=== PATIENT | female | born 1970 | race Caucasian/White ===

== ENCOUNTER 2021-05-02 06:08 | Day surgery (SDC) | payer SELFPAY ==
[~2021-05-02 06:08] MED LIST: Lactated Ringers 1,000 ML IV SCH; cefOXitin 2 GM in Premix Bag 1 BAG IV ONE
[2021-05-02] MEDS ORDERED: Dexamethasone 4 MG/ML 5 ML MDV ONE (07:05)
[2021-05-02] MEDS ORDERED: Rocuronium Bromide 50 MG/5 ML Syringe ONE ×2 (07:05→08:55)
[2021-05-02] MEDS ORDERED: Ondansetron 4 MG/2 ML SDV ONE (07:05)
[2021-05-02] MEDS ORDERED: Sugammadex Sodium 200 MG/2 ML VIAL ONE (07:05)
[2021-05-02] MEDS ORDERED: fentaNYL 100 MCG/2 ML SDV ONE (07:05)
[2021-05-02] MEDS ORDERED: Lidocaine 2% 5 ML SDV ONE (07:05)
[2021-05-02] MEDS ORDERED: Midazolam 1 MG/ML 2 ML SDV ONE (07:05)
[2021-05-02] MEDS ORDERED: Propofol 200 MG/20 ML SDV ONE (07:05)
[2021-05-02] MEDS ORDERED: fentaNYL 100 MCG/2 ML SDV IVPUSH PRN (07:21)
[2021-05-02] MEDS ORDERED: Albuterol 0.083% 2.5 MG/3 ML Neb Soln NEB PRN (07:21)
[2021-05-02] MEDS ORDERED: Metoclopramide 10 MG/2 ML SDV IVPUSH PRN (07:21)
[2021-05-02] MEDS ORDERED: Ondansetron 4 MG/2 ML SDV IVPUSH PRN (07:21)
[2021-05-02] MEDS ORDERED: HYDROmorphone 1 MG/ML Syringe IVPUSH PRN (07:21)
[2021-05-02] MEDS ORDERED: Morphine 10 MG/ML Syringe IVPUSH PRN ×2 (07:21→10:30)
[2021-05-02] MEDS ORDERED: Naloxone 0.4 MG/ML Syringe IVPUSH PRN (07:21)
--- NOTE | 2021-05-02 07:21 | PCM.PREANE ---
Preanesthetic Assessment - Procedure Proposed Procedure: Lap Rosa - Anesthesia/Transfusion/Family Hx Anesthesia History: Prior Anesthesia Without Reaction Family History of Anesthesia Reaction: No Transfusion History: No Prior Transfusion(s) - Review of Systems General: No Symptoms Pulmonary: No Symptoms (Asthma, uses inhaler 2x daily) Cardiovascular: No Symptoms Gastrointestinal: No Symptoms Neurological: No Symptoms Other: Reports: None (Obesity, BMI=33.1) - Physical Assessment NPO Status Date: 05/01/21 NPO Status Time: 14:00 Vital Signs: Last Vital Signs Temp 98.2 F 05/02/21 06:26 Pulse 94 05/02/21 06:26 Resp 16 05/02/21 06:26 BP 149/93 H 05/02/21 06:26 Pulse Ox 97 05/02/21 06:26 Height: 6 ft Weight: 110.677 kg ASA Class: 2 Mental Status: Alert & Oriented x3 Dentition: Reports: Normal Dentition Thyro-Mental Finger Breadths: 3 Mouth Opening Finger Breadths: 2 ROM/Head Extension: Full Lungs: Clear to Auscultation, Normal Respiratory Effort Cardiovascular: Regular Rate, Regular Rhythm - Lab Values: Laboratory Last Values Urine HCG, Qual NEGATIVE (NEGATIVE) 05/02/21 06:25 - Allergies Allergies/Adverse Reactions: Allergies Allergy/AdvReac Type Severity Reaction Status Date / Time iodine Allergy Anaphylactic Verified 05/02/21 06:56 Shock latex Allergy Anaphylactic Verified 05/02/21 06:56 Shock Penicillins Allergy Anaphylactic Verified 05/02/21 06:56 Shock - Acknowledgements Anesthesia Type Planned: General Anesthesia Pt an Appropriate Candidate for the Planned Anesthesia: Yes Alternatives and Risks of Anesthesia Discussed w Pt/Guardian: Yes Pt/Guardian Understands and Agrees with Anesthesia Plan: Yes PreAnesthesia Questionnaire HEENT History: Reports: Other (See Below) Other HEENT History: wears glasses Cardiovascular History: Reports: None Respiratory History: Reports: Asthma Gastrointestinal History: Reports: GERD Genitourinary History: Reports: None Musculoskeletal History: Reports: Fracture Other Musculoskeletal History: hx fx wrist Neurological History: Reports: None Psychiatric History: Reports: Anxiety Endocrine/Metabolic History: Reports: Obesity/BMI 30+ Hematologic History: Reports: None Immunologic History: Reports: None Oncologic (Cancer) History: Reports: None Dermatologic History: Reports: Psoriasis - Past Surgical History Head Surgeries/Procedures: Reports: None HEENT Surgical History: Reports: Adenoidectomy, Tonsillectomy Cardiovascular Surgical History: Reports: None Respiratory Surgical History: Reports: None GI Surgical History: Reports: None Female Surgical History: Reports: None Endocrine Surgical History: Reports: None Neurological Surgical History: Reports: None Musculoskeletal Surgical History: Reports: None Oncologic Surgical History: Reports: None Dermatological Surgical History: Reports: None - SUBSTANCE USE Tobacco Use Status *Q: Never Tobacco User - HOME MEDS Home Medications: Home Meds Budesonide/Formoterol Fumarate [Symbicort 160-4.5 Mcg Inhaler] 2 puff INH BID 04/26/21 [History] Cholecalciferol (Vitamin D3) [Vitamin D3] 125 mcg PO DAILY 04/26/21 [History] Ibuprofen 800 mg PO ASDIRECTED PRN 04/26/21 [History] Montelukast Sodium 10 mg PO BEDTIME 04/26/21 [History] buPROPion HCL [Bupropion Xl] 150 mg PO DAILY 04/26/21 [History] medroxyPROGESTERone [Depo-Provera Contraceptive] 1 injection IM ASDIRECTED 04/26/21 [History] - CURRENT (IN HOUSE) MEDS Current Meds: Current Medications Lactated Ringer's (Ringers, Lactated) 1,000 mls @ 125 mls/hr IV ASDIRECTED [facility] Last Admin: 05/02/21 06:38 Dose: 125 mls/hr Documented by: Discontinued Medications Dexamethasone (Dexamethasone 4 Mg/Ml 5 Ml Mdv) Confirm Administered Dose 20 mg .ROUTE .STK-MED ONE Stop: 05/02/21 07:06 Fentanyl (Fentanyl 100 Mcg/2 Ml Sdv) Confirm Administered Dose 100 mcg .ROUTE .STK-MED ONE Stop: 05/02/21 07:06 Cefoxitin Sodium 2 gm/ Premix 50 mls @ 100 mls/hr IV ONETIME ONE Stop: 05/02/21 06:29 Lidocaine (Lidocaine 2% 5 Ml Sdv) Confirm Administered Dose 5 ml .ROUTE .STK-MED ONE Stop: 05/02/21 07:06 Midazolam HCl (Midazolam 1 Mg/Ml 2 Ml Sdv) Confirm Administered Dose 2 mg .ROUTE .STK-MED ONE Stop: 05/02/21 07:06 Ondansetron HCl (Ondansetron 4 Mg/2 Ml Sdv) Confirm Administered Dose 4 mg .ROUTE .STK-MED ONE Stop: 05/02/21 07:06 Propofol (Propofol 200 Mg/20 Ml Sdv) Confirm Administered Dose 200 mg .ROUTE .STK-MED ONE Stop: 05/02/21 07:06 Rocuronium Prince (Rocuronium Prince 50 Mg/5 Ml Syringe) Confirm Administered Dose 50 mg .ROUTE .[employer]-MED ONE Stop: 05/02/21 07:06 Sugammadex Sodium (Sugammadex Sodium 200 Mg/2 Ml Vial) Confirm Administered Dose 200 mg .ROUTE .STK-MED ONE Stop: 05/02/21 07:06
[2021-05-02] MEDS ORDERED: ceFAZolin 1 GM Vial ONE (07:33)
[2021-05-02] MEDS ORDERED: Bupivacaine 0.5% 30 ML SDV ONE (07:33)
[2021-05-02] MEDS ORDERED: Ciprofloxacin in D5W 200 ML ONE (07:52)
[2021-05-02] MEDS ORDERED: HYDROmorphone 2 MG/ML Syringe ONE (08:26)
[2021-05-02] MEDS ORDERED: Fluorescein 5 ML Vial ONE (08:46)
[2021-05-02] MEDS ORDERED: Indocyanine Green 25 MG SDV ONE (08:46)
[2021-05-02] MEDS ORDERED: Ketorolac 30 MG/ML SDV ONE (10:20)
[2021-05-02] MEDS ORDERED: Acetaminophen/HYDROcodone 325-5 MG Tab PO PRN (10:30)
[2021-05-02] MEDS ORDERED: Lactated Ringers 1,000 ML IV SCH (10:30)
--- NOTE | 2021-05-02 10:33 | PCM.OPNOTE ---
- General Post-Op/Procedure Note Date of Surgery/Procedure: 05/02/21 Operative Procedure(s): Laparoscopic cholecystectomy Pre Op Diagnosis: Symptomatic cholelithiasis Post-Op Diagnosis: Acute and chronic cholecystitis with cholelithiasis Anesthesia Technique: General ET Tube (ASA II) Primary Surgeon: Hal Barker Fluid Replacement, Intraop: 1,100 Output, Urine Amount: 75 EBL in mLs: 75 Condition: Good Free Text/Narrative:: DICTATION [id number] CPT CODE 43861
--- NOTE | 2021-05-02 11:04 | PCM.POSTAN ---
POST ANESTHESIA ASSESSMENT - MENTAL STATUS Mental Status: Alert, Oriented - VITAL SIGNS Vital Signs: Last Vital Signs Temp 98.1 F 05/02/21 10:37 Pulse 93 05/02/21 10:58 Resp 12 05/02/21 10:58 BP 136/82 05/02/21 10:58 Pulse Ox 98 05/02/21 10:58 - RESPIRATORY Respiratory Status: Respiratory Rate WNL - CARDIOVASCULAR CV Status: Pulse Rate WNL, Blood Pressure Stable - GASTROINTESTINAL GI Status: No Symptoms - PAIN Free Text/Narrative:: In no acute distress, resting comfortably. - POST OP HYDRATION Hydration Status: Adequate & Stable
--- NOTE | 2021-05-02 14:33 | PCM48HPAN ---
Post Anesthesia Note - EVALUATION WITHIN 48HRS OF ANESTHETIC Vital Signs in Normal Range: Yes Patient Participated in Evaluation: Yes Respiratory Function Stable: Yes Airway Patent: Yes Cardiovascular Function Stable: Yes Hydration Status Stable: Yes Pain Control Satisfactory: Yes Nausea and Vomiting Control Satisfactory: Yes Mental Status Recovered: Yes Vital Signs: Last Vital Signs Temp 96.8 F L 05/02/21 11:20 Pulse 80 05/02/21 13:05 Resp 16 05/02/21 13:05 BP 129/75 05/02/21 13:05 Pulse Ox 96 05/02/21 13:05
[2021-05-02] MEDS ORDERED: Ondansetron 8 MG Tab.DIS PO ONE (14:57)
--- NOTE | 2021-05-03 11:04 | OR ---
SURGEON: Hal Barker M.D. DATE OF PROCEDURE: 05/02/2021 OPERATION PERFORMED: Laparoscopic cholecystectomy. PRIMARY SURGEON: Hal Barker M.D. ANESTHESIA: General endotracheal. ASA CLASSIFICATION: II. PREOPERATIVE DIAGNOSIS: Symptomatic cholelithiasis. POSTOPERATIVE DIAGNOSIS: Acute on chronic cholecystitis with cholelithiasis. ESTIMATED BLOOD LOSS: 75 mL. INTRAOPERATIVE FLUID REPLACEMENT: 1100 mL of crystalloid. INTRAOPERATIVE URINARY OUTPUT: 75 mL. DESCRIPTION OF PROCEDURE: The patient was taken to the operating room and placed on the operating table in the supine position. Time-out was called for appropriate identification of the patient and procedure. Sequential compression boots were placed. Following satisfactory attainment of general endotracheal anesthesia, a Mejia catheter was placed in the patient's urinary bladder. The abdomen was then prepped sterilely and sterile drapes were applied. The skin just below the umbilicus was infiltrated with 0.5% Marcaine solution. Skin incision was made and deepened through the subcutaneous tissue obtaining hemostasis with the use of electrocautery. The Veress needle was introduced into the peritoneal cavity. The saline drop test was positive. Carbon dioxide pneumoperitoneum was established with the release set at 13 cm of water. Once a satisfactory pneumoperitoneum was established, 5 mm camera and port were placed through the infraumbilical incision. The patient was now positioned with her feet down and rolled to the left. Under camera vision, 12 mm subxiphoid, 5 mm midclavicular, and 5 mm anterior axillary ports were placed. The gallbladder was then grasped. It was quite elongated, but I was able to maneuver the gallbladder appropriately. Dissection was carried out at the cholecystohepatic triangle. The anatomy was not quite clear and therefore, indocyanine green was given to try and help delineate the bile duct anatomy. The common bile duct could be seen with the indocyanine green and appropriate filter. It did take some time and we did find two small structures that went directly into the gallbladder. I did call my partner Dr. Coon to come in and also review the anatomy with me to make sure that we were in the appropriate plane. What turned out to be two small cystic ducts were hemoclipped and divided. Dissection was then carried up along the gallbladder, identifying the cystic artery which was also doubly clipped and divided. It should be noted that during this examination, the bile duct anatomy was checked multiple times with the indocyanine green and appropriate filter as well as obtaining good critical view on multiple occasions. Once the cystic artery was ligated, the gallbladder was dissected away from its bed using electrocautery. Again, the patient demonstrated both acute and chronic cholecystitis. Once the gallbladder was amputated, this was placed in an EndoCatch bag and remained in situ. The bed of the gallbladder was then inspected for hemostasis. No bile was seen leaking from the bed of the gallbladder. Minimal oozing was noted. EndoAvitene and Surgicel were placed into the bed of the gallbladder after irrigating copiously. The right hemidiaphragm was then irrigated with 250 mL of saline containing 20 mL of 0.5% Marcaine. That solution was left in place. The EndoCatch containing gallbladder and 12 mm port were removed, although it was necessary to extend the incision to remove the rather large gallbladder. Once that was accomplished, the 5 mm subxiphoid and midclavicular ports were removed and finally, the infraumbilical camera and port were removed. The subxiphoid incision was closed in multiple layers approximating the posterior rectus sheath with 0 Vicryl. The anterior rectus sheath was reapproximated with interrupted 0 Ethibond. The subxiphoid and infraumbilical incisions were then closed in two layers approximating the subcutaneous tissue with 3-0 Vicryl and the skin with subcuticular 4-0 Monocryl. The anterior axillary and midclavicular incisions were closed with subcuticular 4-0 Monocryl. All incisions were Steri-Stripped and dressed with sterile Tegaderm pads. Sponge, needle, and instrument counts were all correct. The Mejia catheter was removed prior to emergence from anesthesia. Following emergence from anesthesia and extubation, the patient was taken to recovery room in stable condition. ADAM / CLARK /[id number]
== END 2021-05-02 15:15 | disposition home or self-care (01) ==
LOC: MW.SDS 06:08
PROVIDERS: ATTEND Surgery
DX: K80.12 Calculus of gallbladder with acute and chronic cholecystitis without obstruction (principal); J45.909 Unspecified asthma, uncomplicated; F32.9 Major depressive disorder, single episode, unspecified; E66.9 Obesity, unspecified; Z68.33 Body mass index [BMI] 33.0-33.9, adult
CPT/HCPCS: 47562; 81025; 88304; A9270; J0131; J0744; J1100; J1170; J1885; J2250; J2704; J3490; J7120; 00790; J0690; J2405; J3010